=== PATIENT | female | born 1980 | race Caucasian/White ===

== ENCOUNTER 2023-06-11 12:37 | Emergency (ER) | payer BC, SELFPAY ==
[2023-06-11 12:39] VITALS: BP 153/95
[2023-06-11] MEDS: ZOFRAN 4 MG IV (12:51)
[2023-06-11] MEDS: TORADOL 15 MG IV (12:58)
[2023-06-11] MEDS: DILAUDID 0.5 MG IV (12:58)
[2023-06-11] MEDS: NSS 1000 IV (12:59)
[2023-06-11 13:01] LABS: % Basophils 0.5 % (0-2); % Eosinophils 1.8 % (0-6); % Immature Granulocytes 0.3 % (0-0.5); % Lymphocytes 13.4 % (20.5-51.1); % Monocytes 6.2 % (1.7-9.3); % Neutrophils 77.8 % (42.2-75.2); Absolute Basophils 0.1 10^3/uL (0-0.2); Absolute Eosinophils 0.2 10^3/uL (0-0.7); Absolute Lymphocytes 1.8 10^3/uL (1.2-3.4); Absolute Monocytes 0.8 10^3/uL (0.1-0.6); Absolute Neutrophils 10.3 10^3/uL (1.4-6.5); Hematocrit 41.8 % (37.0-47.0); Hemoglobin 13.7 g/dL (12.0-16.0); Mean Corp Hgb Conc. 32.8 g/dL (33.0-37.0); Mean Corpuscular Hgb 29.6 pg (27.0-31.0); Mean Corpuscular Volume 90.3 fL (81.0-99.0); Mean Platelet Volume 10.3 fL (7.4-10.4); Nucleated Red Blood Cells % 0 %; Platelet Count 292 10^3/uL (130-400); Red Blood Cell Count 4.63 10^6/uL (4.20-5.40); Red Cell Dist. Width 13.3 % (11.5-14.5); White Blood Cell Count 13.2 10^3/uL (4.8-10.8)
[2023-06-11 13:08] VITALS: BP 124/77
[2023-06-11 13:16] VITALS: BMI 38.2
[2023-06-11 13:16] LABS: HCG, Serum Qualitative Screen Negative
[2023-06-11 13:25] LABS: Urine Albumin Trace (Neg - Trace); Urine Bilirubin Negative (Negative); Urine Character Slightly Cloudy (Clear); Urine Color Yellow; Urine Glucose Negative (Negative); Urine Ketone Negative (Negative); Urine Leukocyte Trace (Negative); Urine Nitrite Negative (Negative); Urine Occult Blood Negative (Negative); Urine Specific Gravity 1.015 (<1.030); Urine Urobilinogen Negative (Neg - 1+)
[2023-06-11 13:57] LABS: ALT (SGPT) 13 U/L (0-35); AST (SGOT) 16 U/L (14-36); Albumin 4.1 g/dl (3.5-5.0); Alkaline Phosphatase 85 U/L (38-126); Blood Urea Nitrogen 10 mg/dl (7-17); Calcium 9.2 mg/dl (8.4-10.2); Carbon Dioxide 25 mmol/L (22-30); Chloride 103 mmol/L (98-107); Estimated Creatinine Clearance > 125 ml/min; Glucose 129 mg/dl (70-99); Lipase 77 U/L (23-300); Sodium 135 mmol/L (135-145); Total Bilirubin 0.6 mg/dl (0.2-1.3); Total Protein 7.1 g/dl (6.3-8.2); eGFR > 60.00
[2023-06-11 14:06] VITALS: BP 130/69
[2023-06-11 14:21] LABS: Urine Mucus Few; Urine Squamous Cell >30 /LPF (Few)
[2023-06-11 14:29] LABS: Urine Amorphous Seen
[2023-06-11 14:30] LABS: Urine Bacteria Few (Negative); Urine Red Blood Cell 0-2 /HPF (0-2)
[2023-06-11 15:00] VITALS: BP 142/81
--- NOTE | 2023-06-11 15:58 | ED.GENMED ---
History of Present Illness
General
Chief Complaint: Abdominal Symptoms
Source: patient
Exam Limitations: none
Time Seen by Provider: 06/11/23 12:49
Nursing documentation reviewed up to this point in time: agreed with
Travel History
Have you had any contact with someone who has COVID-19?: No
Do you have any symptoms of coronavirus? Fever > 100 degrees, chills, cough, shortness of breath, sore throat, loss of taste or smell, muscle aches, or headache?: No
History of Present Illness
History of Present Illness:
Patient presents to ED secondary to persistent left-sided abdominal pain over the past 3 days. Abdominal pain described as sharp, nonradiating, without any alleviating or exacerbating factors. Patient reports nausea sensation without vomiting.
Denies diarrhea. Denies trauma. Denies fever or chills. Denies difficulty with urination. Denies previous history of similar symptoms. Patient has not received colonoscopy.
Past History
Past History
ED Past Medical History: HTN and Other
ED Past Surgical History: Orthopedic
Social History
Tobacco: Non-smoker
Alcohol: None
Drug: None
Personal:
Living: with family
Employment: Employed
Family History
Family History: Other (Noncontributory)
Review of Systems
Review of Systems
Allergies reviewed?: Yes
All Other Systems: ROS reviewed and negative except as documented in HPI and ROS
Constitutional: Reports no symptoms; Denies fever
ABD/GI: Reports abdominal pain and nausea; Denies vomiting or diarrhea
: Reports no symptoms
Musculoskeletal: Reports no symptoms; Denies back pain
Skin: Reports no symptoms
Neurological: Reports no symptoms
Phy Exam
Physical Exam
Physical Exam:
Physical Exam
General: mild painful distress, not acutely ill. afebrile
Head: nc/at. eomi
Neck: supple. no meningeal signs.
Abdomen: normal bowel sounds. mild LUQ/LLQ tenderness to palpation.
Neuro: alert and oriented. no focal neurological deficits
Skin: no rash
Psychiatric: well kept. interactive and cooperative
Extremities: no edema. no calf tenderness.
Course
Orders/Labs/Results
Orders:
Orders
06/11/23 12:49
Ondansetron Injectable [Zofran] 4 mg .ROUTE .STK-MED ONE
06/11/23 12:51
Ondansetron Injectable [Zofran] 4 mg IV NOW STA
06/11/23 12:54
IV Insert/Care/Rem.- Treatment PRN
0.9% Sodium Chloride 1000 ml [Nss] 1,000 ml IV BOLUS
HYDROmorphone [Dilaudid] 0.5 mg IV NOW STA
Ketorolac [Toradol] 15 mg IV NOW STA
Test Result ONCE
06/11/23 12:56
Complete Blood Count/With Diff Urgent
Comprehensive Metabolic Panel Urgent
HCG, Serum Qualitative Screen Urgent
Lipase Urgent
Urinalysis Reflex To Culture Urgent
Date Specimen was Collected: 06/11/23
Time Specimen was Collected: 12:54
Urine Microscopic Reflex Cult Urgent
06/11/23 14:14
CT Abd/pelvis W Iv Cont Urgent
Comment:
Reason For Exam: LLQ pain
06/11/23 15:57
Amoxicillin 875 mg/Clav 125 mg [Augmentin 875 mg/125 mg] 1 tablet PO NOW STA
Abnormal Lab Results
06/11/23
12:56
WBC 13.2 H 10^3/uL
(4.8-10.8)
MCHC 32.8 L g/dL
(33.0-37.0)
Absolute Neuts (auto) 10.3 H 10^3/uL
(1.4-6.5)
Absolute Monos (auto) 0.8 H 10^3/uL
(0.1-0.6)
Neutrophils % 77.8 H %
(42.2-75.2)
Lymphocytes % 13.4 L %
(20.5-51.1)
Creatinine 0.5 L mg/dL
(0.6-1.0)
Glucose 129 H mg/dl
(70-99)
Leukocyte Esterase Rfl Trace A
(Negative)
Urine Bacteria (Reflex) Few A
(Negative)
06/11/23 12:56
06/11/23 12:56
Vital Signs
Initial and Last Documented VS:
Initial Vital Signs
Temp Pulse Resp BP Pulse Ox
98.3 F 99 16 153/95 98
06/11/23 12:39 06/11/23 12:39 06/11/23 12:39 06/11/23 12:39 06/11/23 12:39
Last Documented Vital Signs
Temp Pulse Resp BP Pulse Ox
98.3 F 99 16 142/81 95
06/11/23 12:39 06/11/23 12:39 06/11/23 12:39 06/11/23 15:00 06/11/23 15:15
MDM/Problems Addressed
MDM/Problems Addressed:
History, exam, and CT scan consistent with acute diverticulitis, without evidence of perforation or abscess. Patient reports improvement symptoms after treatment, and remains hemodynamically stable. Patient will be started on Augmentin with
recommendation to follow-up with PCP or GI physician as an outpatient.
*Critical Care Note
Total Time (30-74mins, 75-104mins- exclusive of procedures): Not Applicable
ED Attending Note
-
Portions of this chart may have been created with voice recognition software.� Occasional wrong word or��sound alike� substitutions may have occurred due to the inherent limitations of voice recognition software.
Discharge Plan
Departure
Patient Disposition: Home (Routine Discharge)
Date of Disposition: 06/11/23
Time of Disposition: 15:58
Patient with high blood pressure during this ER visit?: Yes
Condition: Fair
Discharge Problem:
Diverticulitis
Instructions: Diverticulitis (DC)
Prescriptions:
New
amoxicillin-pot clavulanate 875-125 mg tablet
1 tab PO BID Qty: 19 0RF
ondansetron 4 mg Tablet,Disintegrating
4 mg PO TIDPRN PRN (Reason: nausea/vomiting) Qty: 14 0RF
hydrocodone-acetaminophen 5-300 mg tablet
1 tab PO Q8H PRN (Reason: Pain) Qty: 10 0RF
No Action
propranolol 80 mg Tablet
80 mg PO DAILY
sumatriptan succinate [Imitrex] 25 mg Tablet
25 mg PO PRN PRN (Reason: MIGRAINES)
ferrous sulfate 325 mg (65 mg iron) Capsule, Extended Release
325 mg PO .MWF
Referrals:
Cheyanne Simpson PA-C [Family Provider] -
Aurea España MD [Active] -
Stand Alone Forms: Return to Work
Activity Restrictions/Additional Instructions:
As discussed, please follow-up with your primary care physician and/or referred GI physician with any further concerns. Please return to ED with worsening symptoms, ie. fever/worsening pain/vomiting. Your prescriptions have been sent electronically
to [facility] pharmacy in [place].
Interventions
Interventions:
*Risk Screen - Suicide Last Done: 06/11/23 13:06
*General Assessment Last Done: 06/11/23 13:06
*Neglect/Abuse Screening Last Done: 06/11/23 13:06
ED- Fall Risk Assessment Last Done: 06/11/23 13:06
*ED COVID-19 Vaccine History Last Done: 06/11/23 12:39
*Nursing Disposition Last Done: 06/11/23 19:23
WT-Wfasxs-Oxnxpwchvp Assessment Last Done: 06/11/23 13:06
Discharge Date and Time
Discharge Date/Time: 06/11/23 19:24
[2023-06-11] MEDS: AUGMENTIN 875 MG/125 MG 1 TABLET PO (16:04)
== END 2023-06-11 19:24 | disposition home or self-care (01) ==
LOC: EMR 12:37
PROVIDERS: EMERGENCY PHYSICIAN Emergency Medicine; FAMILY PHYSICIAN Physician Assistant
DX: K57.32 Diverticulitis of large intestine without perforation or abscess without bleeding (principal); I10 Essential (primary) hypertension
CPT/HCPCS: 99284; 96374; 96375 ×2; 96361; 74177; 80053; 81003; 81015; 83690; 84703; 85025; Q9967

== ENCOUNTER → 2023-08-14 07:32 | Outpatient (REF) | payer BC, SELFPAY ==
[2023-08-14 09:56] LABS: % Basophils 1.4 % (0-2); % Eosinophils 5.5 % (0-6); % Immature Granulocytes 0.1 % (0-0.5); % Monocytes 5.9 % (1.7-9.3); % Neutrophils 54.1 % (42.2-75.2); Absolute Basophils 0.1 10^3/uL (0-0.2); Absolute Eosinophils 0.4 10^3/uL (0-0.7); Absolute Lymphocytes 2.5 10^3/uL (1.2-3.4); Absolute Monocytes 0.5 10^3/uL (0.1-0.6); Absolute Neutrophils 4.2 10^3/uL (1.4-6.5); Hematocrit 36.9 % (37.0-47.0); Hemoglobin 12.3 g/dL (12.0-16.0); Mean Corp Hgb Conc. 33.3 g/dL (33.0-37.0); Mean Corpuscular Hgb 29.1 pg (27.0-31.0); Mean Corpuscular Volume 87.2 fL (81.0-99.0); Nucleated Red Blood Cells % 0 %; Platelet Count 409 10^3/uL (130-400); Red Blood Cell Count 4.23 10^6/uL (4.20-5.40); Red Cell Dist. Width 13.5 % (11.5-14.5); White Blood Cell Count 7.7 10^3/uL (4.8-10.8)
[2023-08-14 10:27] LABS: Iron 71 ug/dl (37-170)
[2023-08-14 10:36] LABS: Percent Saturation 15 % (20-50); Total Iron Binding Capacity 459 ug/dl (265-497)
[2023-08-14 10:54] LABS: Ferritin 9.6 ng/ml (6.24-137)
== END ==
LOC: REG 07:32
PROVIDERS: ATTENDING PHYSICIAN Obstetrics & Gynecology; FAMILY PHYSICIAN Physician Assistant
DX: N92.1 Excessive and frequent menstruation with irregular cycle (principal); N93.9 Abnormal uterine and vaginal bleeding, unspecified
CPT/HCPCS: 82728; 83540; 83550; 85025

== ENCOUNTER → 2023-08-23 06:37 | Day surgery (SDC) | payer BC, SELFPAY | LOC: GI 06:37 | PROVIDERS: ATTENDING PHYSICIAN Internal Medicine; FAMILY PHYSICIAN Physician Assistant | DX: Z12.11 Encounter for screening for malignant neoplasm of colon (principal); R10.9 Unspecified abdominal pain; R19.4 Change in bowel habit; K57.30 Diverticulosis of large intestine without perforation or abscess without bleeding; K64.9 Unspecified hemorrhoids | CPT/HCPCS: G0121 ==

== ENCOUNTER → 2023-09-05 13:06 | Outpatient (REF) | payer BC, SELFPAY | LOC: RAD 13:06 | PROVIDERS: ATTENDING PHYSICIAN Physician Assistant | DX: R10.9 Unspecified abdominal pain (principal); K57.32 Diverticulitis of large intestine without perforation or abscess without bleeding | CPT/HCPCS: 74177; Q9967 ==

== ENCOUNTER → 2023-09-07 17:02 | Outpatient (REF) | payer BC, SELFPAY | LOC: RAD 17:02 | PROVIDERS: ATTENDING PHYSICIAN Physician Assistant | DX: N83.202 Unspecified ovarian cyst, left side (principal) | CPT/HCPCS: 76830; 76856 ==

== ENCOUNTER 2023-09-14 06:11 | Day surgery (SDC) | payer BC, SELFPAY ==
[2023-09-10 18:50] LABS: % Eosinophils 5.5 % (0-6); % Immature Granulocytes 0.3 % (0-0.5); % Lymphocytes 37.7 % (20.5-51.1); % Neutrophils 50.5 % (42.2-75.2); Absolute Basophils 0.1 10^3/uL (0-0.2); Absolute Eosinophils 0.5 10^3/uL (0-0.7); Absolute Lymphocytes 3.5 10^3/uL (1.2-3.4); Absolute Monocytes 0.5 10^3/uL (0.1-0.6); Absolute Neutrophils 4.7 10^3/uL (1.4-6.5); Hematocrit 26.3 % (37.0-47.0); Hemoglobin 8.8 g/dL (12.0-16.0); Mean Corp Hgb Conc. 33.5 g/dL (33.0-37.0); Mean Corpuscular Hgb 28.1 pg (27.0-31.0); Mean Platelet Volume 9.3 fL (7.4-10.4); Nucleated Red Blood Cells % 0 %; Platelet Count 507 10^3/uL (130-400); Red Blood Cell Count 3.13 10^6/uL (4.20-5.40); Red Cell Dist. Width 12.8 % (11.5-14.5); White Blood Cell Count 9.2 10^3/uL (4.8-10.8)
[2023-09-10 19:06] LABS: Blood Urea Nitrogen 17 mg/dl (7-17); Calcium 10.1 mg/dl (8.4-10.2); Carbon Dioxide 20 mmol/L (22-30); Chloride 106 mmol/L (98-107); Glucose 100 mg/dl (70-99); Potassium 4.6 mmol/L (3.5-5.1); Sodium 136 mmol/L (135-145); eGFR > 60.00
[2023-09-10 19:23] LABS: Beta HCG Quantitative < 2.39 mIU/ml
--- NOTE | 2023-09-13 07:51 | PTCARENOTE ---
Catrina @ Dr. Aponte' ofice notified of patients 09/09 abnormal labs- platelets 507; Hgb 8.8
[2023-09-14] VITALS (19 sets, daily range): BP systolic 114–147; BP diastolic 67–91; BMI 38.0
[2023-09-14] MEDS: TYLENOL 1000 MG PO (06:43)
[2023-09-14] MEDS: NORMOSOL-R 1000 IV (07:04)
--- NOTE | 2023-09-14 07:20 | W.SUR.PREOP ---
Pre-Operative Surgical Note
-
I have examined this patient prior to the performance of the scheduled procedure.
The patient's condition is unchanged from the time of the current History and
Physical and the patient is able to undergo the scheduled procedure.
Karla reports she has been having bleeding since labs drawn for surgery and passing large clots. Started to slow a little. Fels a little dizzy.
Will check her H/H this am and also ordering at least 1 unit blood.
Reviewed with OR Nurses and SDS nurse.
[2023-09-14 07:42] LABS: Hematocrit 22.4 % (37.0-47.0); Hemoglobin 7.2 g/dL (12.0-16.0)
--- NOTE | 2023-09-14 08:38 | W.IMMPOSTOP ---
Surgical Immed Post Op Note
-
Primary Surgeon: Raysa Seo DO
Assisting Surgeon: none
Pre-op Diagnosis: Menorrhagia, symptomatic anemia
Post-op Diagnosis: same
Procedure Performed: Hysteroscopy D&C
Anesthesia Type: General LMA Anesthesiologist: Dr. Bruce
Specimen / Cultures: 1. Endocervical curettings 2. Endometrial curettings
Estimated Blood Loss: 5 mL's
Complications: None
Operative Findings: Uterus approximately 11.5 cm in size. Bilateral tubal ostia visualized. Dark clot approximately 2 cm in the endometrial cavity. No evidence of tumor, mass or polyp. Moderate amount of endometrial lining
Fluid deficit: 90 mL normal saline solution
Counts: Correct x 2
Stable to recovery room. She received 1 unit PRBC in PACU due to symptomatic anemia. Preoperative hemoglobin 7.2 today. Stable to recovery room. Patient to receive 1 unit PRBC in PACU due to symptomatic anemia. Preoperative hemoglobin 7.2
today. Patient consented for blood.
[2023-09-14] MEDS: ZOFRAN 4 MG IV (08:40)
[2023-09-14] MEDS: TYLENOL 650 MG PO (12:19)
== END 2023-09-14 16:36 | disposition home or self-care (01) ==
LOC: SDS 06:11
PROVIDERS: ATTENDING PHYSICIAN Obstetrics & Gynecology
DX: N85.8 Other specified noninflammatory disorders of uterus (principal); N92.0 Excessive and frequent menstruation with regular cycle; D64.9 Anemia, unspecified; Z87.42 Personal history of other diseases of the female genital tract
CPT/HCPCS: 58558; 88305; 36430; 80048; 84702; 85014; 85018; 85025; 86850; 86900; 86901; 86920; P9016

== ENCOUNTER → 2023-10-19 08:15 | Outpatient (REF) | payer BC, SELFPAY ==
[2023-10-19 09:22] LABS: % Basophils 1.5 % (0-2); % Eosinophils 9.6 % (0-6); % Immature Granulocytes 0.4 % (0-0.5); % Lymphocytes 30.3 % (20.5-51.1); % Monocytes 5.8 % (1.7-9.3); % Neutrophils 52.4 % (42.2-75.2); Absolute Basophils 0.1 10^3/uL (0-0.2); Absolute Eosinophils 0.5 10^3/uL (0-0.7); Absolute Lymphocytes 1.6 10^3/uL (1.2-3.4); Absolute Monocytes 0.3 10^3/uL (0.1-0.6); Absolute Neutrophils 2.8 10^3/uL (1.4-6.5); Hematocrit 33.9 % (37.0-47.0); Hemoglobin 10.8 g/dL (12.0-16.0); Mean Corp Hgb Conc. 31.9 g/dL (33.0-37.0); Mean Corpuscular Hgb 25.5 pg (27.0-31.0); Mean Corpuscular Volume 80.1 fL (81.0-99.0); Mean Platelet Volume 10.1 fL (7.4-10.4); Nucleated Red Blood Cells % 0 %; Platelet Count 402 10^3/uL (130-400); Red Blood Cell Count 4.23 10^6/uL (4.20-5.40); White Blood Cell Count 5.3 10^3/uL (4.8-10.8)
[2023-10-19 09:34] LABS: ALT (SGPT) 19 U/L (0-35); AST (SGOT) 22 U/L (14-36); Albumin 4.2 g/dl (3.5-5.0); Alkaline Phosphatase 81 U/L (38-126); Blood Urea Nitrogen 14 mg/dl (7-17); Calcium 9.7 mg/dl (8.4-10.2); Carbon Dioxide 22 mmol/L (22-30); Chloride 107 mmol/L (98-107); Glucose 112 mg/dl (70-99); HDL Cholesterol 41 mg/dl; Iron 44 ug/dl (37-170); LDL Cholesterol, Calculated 102 mg/dl; Potassium 4.8 mmol/L (3.5-5.1); Sodium 138 mmol/L (135-145); Total Bilirubin 0.3 mg/dl (0.2-1.3); Total Cholesterol 162 mg/dl (50-199); Total Protein 7.2 g/dl (6.3-8.2); Triglyceride 97 mg/dl (10-149); Very Low Density Lipoprotein 19 mg/dl (0-30); eGFR > 60.00
[2023-10-19 09:43] LABS: Percent Saturation 9 % (20-50); Total Iron Binding Capacity 480 ug/dl (265-497)
[2023-10-19 09:44] LABS: Intact PTH 101.9 pg/ml (13.6-85.8)
[2023-10-19 09:51] LABS: Free T4 0.98 ng/dl (0.78-2.19); Vitamin D, 25-OH*** 28.4 ng/mL (30-80)
[2023-10-19 10:04] LABS: TSH 1.65 uIU/ml (0.47-4.68)
[2023-10-19 10:08] LABS: Ferritin 6.5 ng/ml (6.24-137)
== END ==
LOC: REG 08:15
PROVIDERS: ATTENDING PHYSICIAN Physician Assistant
DX: Z86.2 Personal history of diseases of the blood and blood-forming organs and certain disorders involving the immune mechanism (principal); R79.89 Other specified abnormal findings of blood chemistry; R73.01 Impaired fasting glucose; E66.09 Other obesity due to excess calories; E78.1 Pure hyperglyceridemia
CPT/HCPCS: 36415; 80053; 80061; 82306; 82728; 83036; 83540; 83550; 83970; 84439; 84443; 85025

== ENCOUNTER → 2024-01-19 11:12 | Outpatient (REF) | payer BC, SELFPAY | LOC: WDC 11:12 | PROVIDERS: ATTENDING PHYSICIAN Obstetrics & Gynecology; FAMILY PHYSICIAN Physician Assistant | DX: Z12.31 Encounter for screening mammogram for malignant neoplasm of breast (principal) | CPT/HCPCS: 77063; 77067 ==

== ENCOUNTER 2024-01-20 11:02 | Outpatient (RCR) | payer BC, SELFPAY ==
[2024-01-07 08:30] VITALS: BP 139/82
[2024-01-07] MEDS: VENOFER 265 MG IV (08:47)
[2024-01-07] MEDS: NSS 250 IV (08:48)
[2024-01-07 10:50] VITALS: BP 125/72
[2024-01-13 10:45] VITALS: BP 157/90
[2024-01-13] MEDS: NSS 250 IV (10:56)
[2024-01-13] MEDS: VENOFER 265 MG IV (10:57)
[2024-01-13 12:46] VITALS: BP 139/89
[2024-01-20 11:10] VITALS: BP 138/85
[2024-01-20] MEDS: VENOFER 265 MG IV (11:30)
[2024-01-20] MEDS: NSS 250 IV (11:30)
[2024-01-20 14:00] VITALS: BP 138/85
== END 2024-01-21 07:46 | disposition home or self-care (01) ==
LOC: OID 11:02
PROVIDERS: ATTENDING PHYSICIAN Physician Assistant
DX: D50.0 Iron deficiency anemia secondary to blood loss (chronic) (principal); R79.89 Other specified abnormal findings of blood chemistry
CPT/HCPCS: 96365; J1756

== ENCOUNTER 2024-06-28 06:35 | Day surgery (SDC) | payer BC, SELFPAY ==
--- NOTE | 2024-06-23 12:44 | PTCARENOTE ---
Pt w/family history of Malignant Hyperthermia. RN notified SDS, OR, PACU, Sherrie Bray and Aidee Quezada. No further orders at this time.
[2024-06-26 17:07] LABS: Blood Urea Nitrogen 12 mg/dl (7-17); Calcium 9.5 mg/dl (8.4-10.2); Carbon Dioxide 19 mmol/L (22-30); Chloride 103 mmol/L (98-107); Glucose 149 mg/dl (70-99); Iron 65 ug/dl (37-170); Potassium 4.3 mmol/L (3.5-5.1); Sodium 137 mmol/L (135-145); eGFR > 60.00
[2024-06-26 17:17] LABS: Percent Saturation 15 % (20-50); Total Iron Binding Capacity 412 ug/dl (265-497)
[2024-06-26 17:22] LABS: Beta HCG Quantitative < 2.39 mIU/ml; FSH 6.6 mIU/ml; Luteinizing Hormone 1.89 mIU/ml
[2024-06-26 17:43] LABS: Ferritin 16.4 ng/ml (6.24-137)
[2024-06-26 18:00] LABS: % Basophils 1.1 % (0-2); % Immature Granulocytes 0.2 % (0-0.5); % Lymphocytes 28.7 % (20.5-51.1); % Monocytes 4.7 % (1.7-9.3); % Neutrophils 57.3 % (42.2-75.2); Absolute Basophils 0.1 10^3/uL (0-0.2); Absolute Eosinophils 0.5 10^3/uL (0-0.7); Absolute Lymphocytes 1.8 10^3/uL (1.2-3.4); Absolute Monocytes 0.3 10^3/uL (0.1-0.6); Absolute Neutrophils 3.7 10^3/uL (1.4-6.5); Hematocrit 38.1 % (37.0-47.0); Hemoglobin 13.1 g/dL (12.0-16.0); Mean Corp Hgb Conc. 34.4 g/dL (33.0-37.0); Mean Corpuscular Hgb 32.4 pg (27.0-31.0); Mean Corpuscular Volume 94.3 fL (81.0-99.0); Mean Platelet Volume 10.4 fL (7.4-10.4); Nucleated Red Blood Cells % 0 %; Platelet Count 347 10^3/uL (130-400); Red Blood Cell Count 4.04 10^6/uL (4.20-5.40); Red Cell Dist. Width 11.7 % (11.5-14.5); White Blood Cell Count 6.4 10^3/uL (4.8-10.8)
[2024-06-28 07:58] VITALS: BMI 35.7
[2024-06-28 08:00] VITALS: BP 140/78; BMI 35.7
[2024-06-28] MEDS: NORMOSOL-R/PLASMALYTE-A 1000 IV (08:17)
--- NOTE | 2024-06-28 09:46 | W.IMMPOSTOP ---
Surgical Immed Post Op Note
-
Primary Surgeon: Raysa Seo DO
Assisting Surgeon: n/a
Pre-op Diagnosis: Menorrhagia, persistent bleeding despite medication
Post-op Diagnosis: Same
Procedure Performed: Hysteroscopy D&C
Anesthesia Type: MAC IV sedation Dr. Wall
Specimen / Cultures: 1. endocervical curettings 2, endometrial curettings
Estimated Blood Loss: 5ml
fluid deficit: 10ml NSS
Complications: none
Operative Findings: Uterus 8cm on sounding. Large amount of tissue removed with endometrial curettings. No evidence of polyp or mass. Tubal ostia seen
Counts correct times 2.
Stable to recovery.
[2024-06-28 09:51] VITALS: BP 113/81
[2024-06-28 10:00] VITALS: BP 107/69
[2024-06-28 10:15] VITALS: BP 111/68
[2024-06-28 10:30] VITALS: BP 125/74
[2024-06-28] MEDS: TYLENOL 650 MG PO (10:44)
[2024-06-28 10:45] VITALS: BP 113/74
== END 2024-06-28 11:38 | disposition home or self-care (01) ==
LOC: SDS 06:35
PROVIDERS: ATTENDING PHYSICIAN Obstetrics & Gynecology
DX: N92.0 Excessive and frequent menstruation with regular cycle (principal); N85.8 Other specified noninflammatory disorders of uterus
CPT/HCPCS: 58558; 88305; 36415; 80048; 82728; 83001; 83002; 83540; 83550; 84443; 84702; 85025; 86850; 86900; 86901

== ENCOUNTER 2024-07-02 12:53 | Emergency (ER) | payer BC, SELFPAY ==
[2024-07-02 13:02] VITALS: BMI 36.9
[2024-07-02 13:21] LABS: % Basophils 0.9 % (0-2); % Eosinophils 5.2 % (0-6); % Immature Granulocytes 0.4 % (0-0.5); % Lymphocytes 13.1 % (20.5-51.1); % Monocytes 5.9 % (1.7-9.3); % Neutrophils 74.5 % (42.2-75.2); Absolute Eosinophils 0.2 10^3/uL (0-0.7); Absolute Lymphocytes 0.6 10^3/uL (1.2-3.4); Absolute Monocytes 0.3 10^3/uL (0.1-0.6); Absolute Neutrophils 3.4 10^3/uL (1.4-6.5); Hematocrit 35.3 % (37.0-47.0); Hemoglobin 12.1 g/dL (12.0-16.0); Mean Corp Hgb Conc. 34.3 g/dL (33.0-37.0); Mean Corpuscular Volume 93.4 fL (81.0-99.0); Nucleated Red Blood Cells % 0 %; Platelet Count 243 10^3/uL (130-400); Red Blood Cell Count 3.78 10^6/uL (4.20-5.40); Red Cell Dist. Width 11.6 % (11.5-14.5); White Blood Cell Count 4.6 10^3/uL (4.8-10.8)
[2024-07-02] MEDS: TORADOL 30 MG IV (13:22)
[2024-07-02] MEDS: VENTOLIN NEBULES 2.5 MG INH ×2 (13:23→15:30)
[2024-07-02 13:35] LABS: ALT (SGPT) 19 U/L (0-35); AST (SGOT) 21 U/L (14-36); Albumin 3.7 g/dl (3.5-5.0); Alkaline Phosphatase 76 U/L (38-126); Blood Urea Nitrogen 7 mg/dl (7-17); Carbon Dioxide 25 mmol/L (22-30); Chloride 104 mmol/L (98-107); Estimated Creatinine Clearance 123 ml/min; Glucose 141 mg/dl (70-99); Potassium 3.9 mmol/L (3.5-5.1); Sodium 136 mmol/L (135-145); Total Bilirubin 0.4 mg/dl (0.2-1.3); Total Protein 6.4 g/dl (6.3-8.2); eGFR > 60.00
[2024-07-02 13:39] LABS: COVID-19 Antigen Negative (Negative)
[2024-07-02 13:45] LABS: Troponin I < 0.012 ng/ml
[2024-07-02 14:00] VITALS: BP 123/71
--- NOTE | 2024-07-02 14:05 | ED.GENMED ---
History of Present Illness
<Susie Bonner PA-C - Last Filed: 07/02/24 16:25>
General
Chief Complaint: Breathing Problem
Source: patient
Exam Limitations: none
Time Seen by Provider: 07/02/24 13:13
Nursing documentation reviewed up to this point in time: agreed with
History of Present Illness
History of Present Illness:
44 y/o F with h/o htn, diverticuliis, asthma, menorrhagia
here with cough and sob x 3 days
pt says she had a D&C 4 days ago and the following day started coughing with associated sob with spastic cough that at times she cannot stop
she has h/o remote asthma that she grew out of
she has had a little pain in her chst with coughing but not with deep breathing
she has no leg swelling, heavy vaginal bleeding currently
mild L sided abdominal soreness, probably from coughing
low grade temp at home
no meds today
Past History
<Susie Bonner PA-C - Last Filed: 07/02/24 16:25>
Past History
ED Past Medical History: HTN and Other
ED Past Surgical History: Orthopedic
Social History
Tobacco: Non-smoker
Alcohol: None
Drug: None
Personal:
Living: with family
Employment: Employed
Family History
Family History: Other (Noncontributory)
Review of Systems
<Susie Bonner PA-C - Last Filed: 07/02/24 16:25>
Review of Systems
Allergies reviewed?: Yes
All Other Systems: Not applicable
Phy Exam
<MAURICE Cornejo Last Filed: 07/02/24 16:25>
Physical Exam
Physical Exam:
GENERAL: Alert , mildly tachypneic
EYE: pupils equal and reactive
NECK: Supple
ENT: b/l TM s clear, pharynx erythematous but no tonsillar hypertrophy or exudates, hoarse voice
CARDIAC: Regular rate and rhythm, no edema
LUNGS: Clear breath sounds bilaterally, no acute respiratory distress, crackles R base, wheezing end exp
ABDOMEN: Soft, without focal tenderness, no r/g, no cvat, normal bowel sounds
NEUROLOGICAL: Alert and oriented, no focal neuro deficits
SKIN: Warm and dry, skin intact.
MUSCULOSKELETAL: No edema, well perfused.
PSYCH: Normal and appropriate interaction.
Scores
<Susie Bonner PA-C - Last Filed: 07/02/24 16:25>
Heart Failure Risk
Heart Failure Risk Score: Not Applicable
Course
<Susie Bonner PA-C - Last Filed: 07/02/24 16:25>
Orders/Labs/Results
Orders:
Orders
07/02/24 12:56
EKG [Electrocardiogram (*1)] Urgent
Reason for Study: Shortness of Breath
EKG- Treatment ONCE
CR Chest - 2 Views Urgent
Comment:
Reason For Exam: SOB
07/02/24 13:10
Complete Blood Count/With Diff Urgent
Comprehensive Metabolic Panel Urgent
Troponin I Urgent
07/02/24 13:12
COVID-19 Antigen Urgent
Source: Nasal Swab
Influenza A+B Rapid Molecular Urgent
ARNAV Source: Nasal Swab
Specimen Description:
07/02/24 13:14
Albuterol Nebs [Ventolin Nebules] 2.5 mg INH R NOW STA
Ketorolac [Toradol] 30 mg IV NOW STA
07/02/24 13:57
Dexamethasone Sod Phosphate [Decadron] 10 mg IV NOW STA
07/02/24 15:13
Albuterol Nebs [Ventolin Nebules] 2.5 mg .ROUTE .STK-MED ONE
07/02/24 15:27
Albuterol Nebs [Ventolin Nebules] 2.5 mg INH R NOW STA
07/02/24 15:38
Acetaminophen [Tylenol] 1,000 mg PO NOW STA
Abnormal Lab Results
07/02/24
13:10
WBC 4.6 L 10^3/uL
(4.8-10.8)
RBC 3.78 L 10^6/uL
(4.20-5.40)
Hct 35.3 L %
(37.0-47.0)
MCH 32.0 H pg
(27.0-31.0)
Absolute Lymphs (auto) 0.6 L 10^3/uL
(1.2-3.4)
Lymphocytes % 13.1 L %
(20.5-51.1)
Glucose 141 H mg/dl
(70-99)
07/02/24 13:10
07/02/24 13:10
Vital Signs
Initial and Last Documented VS:
Initial Vital Signs
Pulse Resp Pulse Ox
99 23 99
07/02/24 13:09 07/02/24 13:09 07/02/24 13:09
Last Documented Vital Signs
Temp Pulse Resp BP Pulse Ox
37.9 C 94 24 137/79 98
07/02/24 14:00 07/02/24 15:15 07/02/24 15:15 07/02/24 15:00 07/02/24 15:15
<James Mtz MD - Last Filed: 07/02/24 14:27>
Orders/Labs/Results
Orders:
Orders
07/02/24 12:56
EKG [Electrocardiogram (*1)] Urgent
Reason for Study: Shortness of Breath
EKG- Treatment ONCE
CR Chest - 2 Views Urgent
Comment:
Reason For Exam: SOB
07/02/24 13:10
Complete Blood Count/With Diff Urgent
Comprehensive Metabolic Panel Urgent
Troponin I Urgent
07/02/24 13:12
COVID-19 Antigen Urgent
Source: Nasal Swab
Influenza A+B Rapid Molecular Urgent
ARNAV Source: Nasal Swab
Specimen Description:
07/02/24 13:14
Albuterol Nebs [Ventolin Nebules] 2.5 mg INH R NOW STA
Ketorolac [Toradol] 30 mg IV NOW STA
07/02/24 13:57
Dexamethasone Sod Phosphate [Decadron] 10 mg IV NOW STA
07/02/24 15:13
Albuterol Nebs [Ventolin Nebules] 2.5 mg .ROUTE .STK-MED ONE
07/02/24 15:27
Albuterol Nebs [Ventolin Nebules] 2.5 mg INH R NOW STA
07/02/24 15:38
Acetaminophen [Tylenol] 1,000 mg PO NOW STA
Abnormal Lab Results
07/02/24
13:10
WBC 4.6 L 10^3/uL
(4.8-10.8)
RBC 3.78 L 10^6/uL
(4.20-5.40)
Hct 35.3 L %
(37.0-47.0)
MCH 32.0 H pg
(27.0-31.0)
Absolute Lymphs (auto) 0.6 L 10^3/uL
(1.2-3.4)
Lymphocytes % 13.1 L %
(20.5-51.1)
Glucose 141 H mg/dl
(70-99)
07/02/24 13:10
07/02/24 13:10
Vital Signs
Initial and Last Documented VS:
Initial Vital Signs
Pulse Resp Pulse Ox
99 23 99
07/02/24 13:09 07/02/24 13:09 07/02/24 13:09
Last Documented Vital Signs
Temp Pulse Resp BP Pulse Ox
37.9 C 94 24 137/79 98
07/02/24 14:00 07/02/24 15:15 07/02/24 15:15 07/02/24 15:00 07/02/24 15:15
<Susie Bonner PA-C - Last Filed: 07/02/24 16:25>
MDM/Problems Addressed
Differential Diagnosis Includes:
Bronchitis, influenza, aspiration pneumonitis, pneumonia, less likely PE
MDM/Problems Addressed:
44-year-old female presents for 2 to 3 days of a cough with worsening shortness of breath, some pain with coughing after a minor surgical procedure. She was not intubated during the procedure but was given a conscious sedation. Patient says she
felt okay for a day before developing symptoms of a cough which she feels is worse at night. She is not sleeping. She had a low-grade temp. She is not specifically having significant chest pain or chest pain with breathing but more with coughing.
On exam she was borderline febrile, not tachycardic, not hypoxic but had some crackles and wheezes on exam with a spastic cough with any deep breathing. She had a normal nonischemic EKG and negative troponin. Mild leukopenia. She was flu a
positive. Her chest x-ray independently reviewed by me showed no pneumonia. Patient was given an albuterol neb and significantly improved the wheezing and cough and shortness of breath. She did rebound and have a little bit more cough so she was
given a second neb. She does feel clinically better though she is still wheezing. She is not hypoxic. She was offered ambulation with a pulse ox to ensure that she does not desat. 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 At this point discussed with ED attending who agreed. Prednisone, Tessalon, albuterol neb machine with albuterol Nebules, cough medicine at night. Return precautions given
<Susie Bonner PA-C - Last Filed: 07/02/24 16:25>
*Critical Care Note
Total Time (30-74mins, 75-104mins- exclusive of procedures): Not Applicable
ED Attending Note
<Susie Bonner PA-C - Last Filed: 07/02/24 16:25>
-
Portions of this chart may have been created with voice recognition software.� Occasional wrong word or��sound alike� substitutions may have occurred due to the inherent limitations of voice recognition software.
<James Mtz MD - Last Filed: 07/02/24 14:27>
ED Attending Note
Patient seen and examined by attending physician: Yes
ED Attending Note:
I have seen and evaluated the patient with a [id number] encounter. I have spoken to the advance practicer provider and involved in the medical history, the physical exam, medical decision making.
Evaluation and management service: agree unless noted differently below.
Results interpretation: agree unless noted differently below.
Focused HPI: 44-year-old female with history as noted presents for shortness of breath and cough. Patient had D&C for dysmenorrhagia 06/28/[address] Seo. She had sedation for the procedure. She says when she woke up from the procedure she
had dry throat that was attributed to glycopyrrolate. She says she has had a cough essentially since she woke up from anesthesia and has had some increasing shortness of breath and chest pressure. Came to the ER for assessment.
Physical exam: Awake alert no distress. Patient has faint wheezing at the lung bases and frequent coughing. No cardiac rubs gallops or murmurs.
Medical Decision Makin-year-old female presents with cough and shortness of breath increasing since she had anesthesia for D&C. Vitals and exam as above. Labs reviewed CBC shows marginal leukopenia 4.6, acceptable hemoglobin 12.1; CMP no
clinically significant abnormalities. Troponin undetectable. Chest x-ray reviewed by me shows no pneumonia or other acute pathology. She is positive for influenza suspect likely bronchitis related to influenza. Will treat with albuterol,
steroid; outside window of benefit for Tamiflu.
Discharge Plan
Departure
Patient Disposition: Home (Routine Discharge)
Date of Disposition: 07/02/24
Time of Disposition: 15:58
Patient with high blood pressure during this ER visit?: No
Condition: Fair
Discharge Problem:
Influenza A, Acute bronchitis
Instructions: Acute Bronchitis, Adult (DC), Flu in adults - Discharge instructions
Prescriptions:
New
codeine-guaifenesin 10-100 mg/5 mL liquid
5 ml PO Q6H PRN (Reason: Cough) Qty: 118 0RF
albuterol sulfate 2.5 mg /3 mL (0.083 %) solution for nebulization
2.5 mg inhalation Q6H PRN (Reason: bronchospasm) Qty: 75 0RF
prednisone 50 mg tablet
50 mg PO DAILY Qty: 4 0RF
benzonatate 200 mg capsule
200 mg PO TID PRN (Reason: Cough) Qty: 12 0RF
No Action
propranolol 80 mg Tablet
80 mg PO DAILY
sumatriptan succinate [Imitrex] 25 mg Tablet
25 mg PO PRN PRN (Reason: MIGRAINES)
vitamin B complex Tablet Extended Release
1 tab PO DAILY
Excedrin Migraine 250-250-65 mg Tablet
2 tab PO Q6H PRN (Reason: migraine)
metoclopramide HCl [Reglan] 10 mg Tablet
10 mg PO Q6H PRN (Reason: N/V)
zinc acetate 50 mg (zinc) Capsule
100 mg PO DAILY
ferrous sulfate 325 mg (65 mg iron) Tablet
325 mg PO .MWF
ondansetron 4 mg tablet,disintegrating
4 mg PO TIDPRN PRN (Reason: N/V)
Referrals:
UNKNOWN - PT NOT,INTERVIEWE [Unknown Provider] -
Stand Alone Forms: Return to Work
Activity Restrictions/Additional Instructions:
YOUR CHEST XRAY DID NOT SHOW ANY SIGNS OF PNEUMONIA
YOU TESTED POSITIVE FOR THE FLU
TAKE TYLENOL EVERY 6 HOURS, MOTRIN EVERY 8HOURS FOR FEVERS
DRINK FLUIDS
PREDNISONE ONCE A DAY STARTING TOMORROW FOR 4 DAYS
USE THE TESSALON PERLES FOR COUGH EVERY 8 HOURS NEEDED
AT NIGHT YOU CAN TRY GUAIFENESSIN/CODEINE SYRUP NEEDED
USE THE NEB MACHINE EVERY 6 HOURS NEEDED FOR COUGH/WHEEZING
RETURN FOR: WORSENIGN SHORTNESS OF BREATH, CHEST PAIN, PASSING OUT, HIGH FEVER NOT RESPONDIGN TO TYLENOL/MOTRIN OR ANYCOCNERNS.
Interventions
Interventions:
*Risk Screen - Suicide Last Done: 07/02/24 12:55
*General Assessment Last Done: 07/02/24 12:55
*Neglect/Abuse Screening Last Done: 07/02/24 12:55
ED- Fall Risk Assessment Last Done: 07/02/24 13:25
*ED COVID-19 Vaccine History Last Done: 07/02/24 12:55
ED- Cardiac Assessment Last Done: 07/02/24 13:25
ED- Pulmonary Assessment Last Done: 07/02/24 13:25
Discharge Date and Time
Print Language: LITHUANIAN
[2024-07-02 14:27] VITALS: BP 140/87
[2024-07-02] MEDS: DECADRON 10 MG IV (14:29)
[2024-07-02 15:00] VITALS: BP 137/79
[2024-07-02] MEDS: TYLENOL 1000 MG PO (16:01)
== END 2024-07-02 16:05 | disposition home or self-care (01) ==
LOC: EMR 12:53
PROVIDERS: Emergency Medicine; EMERGENCY PHYSICIAN Emergency Medicine; FAMILY PHYSICIAN Physician Assistant
DX: J20.9 Acute bronchitis, unspecified (principal); J10.1 Influenza due to other identified influenza virus with other respiratory manifestations; Z11.52 Encounter for screening for COVID-19; I10 Essential (primary) hypertension; K57.90 Diverticulosis of intestine, part unspecified, without perforation or abscess without bleeding; K21.9 Gastro-esophageal reflux disease without esophagitis; Z88.4 Allergy status to anesthetic agent; Z88.8 Allergy status to other drugs, medicaments and biological substances; Z91.048 Other nonmedicinal substance allergy status
CPT/HCPCS: 99284; 96374; 96375; 94640 ×2; 71046; 80053; 84484; 85025; 87502; 87811; 93005

== ENCOUNTER → 2025-02-23 09:37 | Outpatient (REF) | payer BC, SELFPAY | LOC: RAD 09:37 | PROVIDERS: ATTENDING PHYSICIAN Emergency Medicine | DX: R10.9 Unspecified abdominal pain (principal) | CPT/HCPCS: 74177; Q9967 ==

== ENCOUNTER → 2025-03-22 07:24 | Outpatient (REF) | payer BC, SELFPAY ==
[2025-03-22 08:13] LABS: Hematocrit 40.2 % (37.0-47.0); Hemoglobin 12.9 g/dL (12.0-16.0); Mean Corp Hgb Conc. 32.1 g/dL (33.0-37.0); Mean Corpuscular Volume 92.2 fL (81.0-99.0); Nucleated Red Blood Cells % 0 %; Platelet Count 322 10^3/uL (130-400); Red Cell Dist. Width 13.6 % (11.5-14.5)
[2025-03-22 08:31] LABS: ALT (SGPT) 15 U/L (0-35); AST (SGOT) 15 U/L (14-36); Albumin 4.4 g/dl (3.5-5.0); Alkaline Phosphatase 67 U/L (38-126); Blood Urea Nitrogen 9 mg/dl (7-17); Calcium 9.5 mg/dl (8.4-10.2); Carbon Dioxide 26 mmol/L (22-30); Chloride 106 mmol/L (98-107); Glucose 111 mg/dl (70-99); HDL Cholesterol 49 mg/dl; LDL Cholesterol, Calculated 116 mg/dl; Potassium 4.3 mmol/L (3.5-5.1); Sodium 137 mmol/L (135-145); Total Protein 7.5 g/dl (6.3-8.2); Very Low Density Lipoprotein 28 mg/dl (0-30); eGFR > 60.00
[2025-03-22 09:35] LABS: Glycohemoglobin (HgbA1c) 5.8 % (4.0-5.9)
== END ==
LOC: REG 07:24
PROVIDERS: ATTENDING PHYSICIAN Physician Assistant
DX: R79.89 Other specified abnormal findings of blood chemistry (principal); D50.0 Iron deficiency anemia secondary to blood loss (chronic); I10 Essential (primary) hypertension; E83.52 Hypercalcemia; E66.9 Obesity, unspecified; Z13.220 Encounter for screening for lipoid disorders
CPT/HCPCS: 36415; 80053; 80061; 83036; 83519; 83970; 84443; 85025